=== PATIENT | male | born 1965 | race Caucasian/White ===

== ENCOUNTER 2017-12-05 22:10 | Observation (INO) | payer OTHER ==
[2017-12-05] MEDS ORDERED: NITROGLYCERIN 0.4 MG BTL SL PRN (22:17)
[2017-12-05] MEDS ORDERED: NS 1,000 ML IV ONE (22:17)
[2017-12-05] MEDS ORDERED: ASPIRIN 81 MG CHEWABLE TAB PO ONE (22:17)
--- NOTE | 2017-12-05 22:20 | EDPHY ---
H & P Stated Complaint: Chest pain/palpatations HPI/ROS: HPI CHIEF COMPLAINT: Chest pressure, "my heart feels like it is stopping " HISTORY OF PRESENT ILLNESS: Patient is a 52-year-old male, history of diabetes , and hypertension, and high triglycerides mild obesity, presents emergency room with pressure in his chest. Patient reports that intermittently over the past week he has had some discomfort in his chest he describes it rather high in his chest as a pressure sensation. Sometimes goes to his back. He was driving this evening and felt like his heart was stopping. He had 2 discrete episodes lasting a few minutes where he states he felt like his heart stopped. Distally state he felt somewhat short of breath and then developed this pressure in his chest. Also had some referred numbness and tingling in his left arm. No nausea. Denies diaphoresis. Denies pleuritic pain. He states he had similar episode back in 2014 for which she was seen here at this hospital for. He states he had a nuclear stress test then and he was negative. Past Medical History: Hypertension, diabetes, triglycerides Past Surgical History: No recent surgery. 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 Denies daily use of drugs alcohol tobacco products. Family History: Noncontributory ROS REVIEW OF SYSTEMS: A comprehensive 10 point review of systems is otherwise negative aside from elements mentioned in the history of present illness. Exam Constitutional appears well nontoxic triage nursing summary reviewed, vital signs reviewed, awake/alert. Eyes normal conjunctivae and sclera, EOMI, PERRLA. HENT normal inspection, atraumatic, moist mucus membranes, no epistaxis, neck supple/ no meningismus, no raccoon eyes. Respiratory clear to auscultation bilaterally, normal breath sounds, no respiratory distress, no wheezing. Cardiovascular rate normal, regular rhythm, no murmur, no edema, distal pulses normal. Gastrointestinal soft, non-tender, no rebound, no guarding, normal bowel sounds, no distension, no pulsatile mass. Genitourinary no CVA tenderness. Musculoskeletal no midline vertebral tenderness, full range of motion, no calf swelling, no tenderness of extremities, no meningismus, good pulses, neurovascularly intact. Skin pink, warm, & dry, no rash, skin atraumatic. Neurologic awake, alert and oriented x 3, AAOx3, moves all 4 extremities equally, motor intact, sensory intact, CN II-XII intact, normal cerebellar, normal vision, normal speech. Psychiatric normal mood/affect. Heme/Lymph/Immune no lymphadenopathy. Differential diagnosis includes but is not limited to: ACS, atypical chest pain , pneumothorax, pneumonia, pulmonary embolism, aortic dissection, congestive heart failure, tumor, musculoskeletal pain, esophageal pain, GERD, peptic ulcer disease, pancreatitis Medical Decision Making: Plan for this patient IV establishment blood draw, EKG will check troponin, full chain offbearer, D-dimer, chest x-ray, full-dose aspirin and nitroglycerin and re-evaluate. Re-evaluation: EKG interpretation by me on record in [facility] system. Impression time of EKG 2218, sinus tachycardia rate of 112. T-wave flattening in the inferior leads. T flattening in V5 V6. Slight inversion in V5. No ST elevation. No significant ST depression. 2358: Patient is chest pain-free after nitroglycerin. He has receive full- dose aspirin. EKG pretty much similar to old EKG, negative troponin negative D-dimer. Chest x -rays reviewed is unremarkable. Patient cardiac risk factors include age, obesity, hypertension, diabetes, high triglycerides, given his presentation I do feel that it is reasonable to observe him overnight with serial enzymes. I have asked the hospitalist service to admit him for observation for chest discomfort and rule him out with serial enzymes. The patient is comfortable this plan. This time he is hemodynamically stable without any chest pain. Source: Patient, Family, EMS - Personal History Tetanus Vaccine Date: 2009 - Medical/Surgical History Hx Asthma: No Hx Chronic Respiratory Disease: No Hx Diabetes: Yes Hx Cardiac Disease: Yes Hx Renal Disease: No Hx Cirrhosis: No Hx Alcoholism: No Hx HIV/AIDS: No Hx Splenectomy or Spleen Trauma: No Other PMH: HTN NIDDM. - Social History Smoking Status: Never smoked Constitutional: Initial Vital Signs Temperature (C) 36.8 C 12/05/17 22:13 Heart Rate 115 H 12/05/17 22:13 Respiratory Rate 20 12/05/17 22:13 Blood Pressure 140/92 H 12/05/17 22:13 O2 Sat (%) 95 12/05/17 22:13 O2 Delivery Mode Room Air Allergies/Adverse Reactions: Penicillins Allergy (Intermediate, Verified 12/05/17 22:12) Rash Home Medications: Medication Instructions Recorded Atorvastatin Calcium [Lipitor 10 10 mg PO DAILY 01/05/16 mg (*)] Glimepiride [Amaryl 2 MG (*)] 2 mg PO DAILY@08 01/05/16 Lisinopril/Hctz 10/12.5 mg 1 tab PO DAILY 01/05/16 [Zestoretic/Prinzide 10/12.5MG (*)] [place]-3 Fatty Acids [Fish Oil 1000 1,000 mg PO DAILY 01/05/16 mg (*)] metFORMIN HCL [Glucophage 500 mg 1,000 mg PO BIDMEAL 01/05/16 (*)] Aspirin 81 mg PO DAILY #30 tablet 01/06/16 Medical Decision Making - Diagnostics Imaging Results: Imaging Impressions Chest X-Ray 12/05/17 22:17 Impression: Stable and negative. - Data Points Laboratory Results: Laboratory Results 12/05/17 22:00 12/05/17 22:00 12/05/17 12/05/17 12/05/17 22:00 22:00 22:00 WBC 11.14 10^3/uL H 10^3/uL (3.80-9.50) RBC 5.72 10^6/uL 10^6/uL (4.40-6.38) Hgb 18.3 g/dL H g/dL (13.7-17.5) Hct 51.2 % H % (40.0-51.0) MCV 89.5 fL fL (81.5-99.8) MCH 32.0 pg pg (27.9-34.1) MCHC 35.7 g/dL g/dL (32.4-36.7) RDW 13.5 % % (11.5-15.2) Plt Count 323 10^3/uL 10^3/uL (150-400) MPV 10.8 fL fL (8.7-11.7) Neut % (Auto) 36.1 % L % (39.3-74.2) Lymph % (Auto) 52.9 % H % (15.0-45.0) [place] % (Auto) 8.3 % % (4.5-13.0) Eos % (Auto) 1.7 % % (0.6-7.6) Baso % (Auto) 0.5 % % (0.3-1.7) Nucleat RBC Rel Count 0.0 % % (0.0-0.2) Absolute Neuts (auto) 4.01 10^3/uL 10^3/uL (1.70-6.50) Absolute Lymphs (auto) 5.89 10^3/uL H 10^3/uL (1.00-3.00) Absolute Monos (auto) 0.93 10^3/uL H 10^3/uL (0.30-0.80) Absolute Eos (auto) 0.19 10^3/uL 10^3/uL (0.03-0.40) Absolute Basos (auto) 0.06 10^3/uL 10^3/uL (0.02-0.10) Absolute Nucleated RBC 0.00 10^3/uL 10^3/uL (0-0.01) Immature Gran % 0.5 % % (0.0-1.1) Immature Gran # 0.06 10^3/uL 10^3/uL (0.00-0.10) PT 12.1 SEC SEC (12.0-15.0) INR 0.87 (0.83-1.16) APTT 27.5 SEC SEC (23.0-38.0) D-Dimer < 0.27 ug/mLFEU ug/mLFEU (0.00-0.50) Sodium 141 mEq/L mEq/L (135-145) Potassium 3.9 mEq/L mEq/L (3.5-5.2) Chloride 95 mEq/L L mEq/L (97-110) Carbon Dioxide 28 mEq/l mEq/l (22-31) Anion Gap 18 mEq/L H mEq/L (8-16) BUN 14 mg/dL mg/dL (7-23) Creatinine 1.2 mg/dL mg/dL (0.7-1.3) Estimated GFR > 60 Glucose 179 mg/dL H mg/dL (70-100) Calcium 10.6 mg/dL H mg/dL (8.5-10.4) Magnesium 2.0 mg/dL mg/dL (1.6-2.3) Total Bilirubin 0.7 mg/dL mg/dL (0.1-1.4) Conjugated Bilirubin 0.3 mg/dL mg/dL (0.0-0.5) Unconjugated Bilirubin 0.4 mg/dL mg/dL (0.0-1.1) AST 32 IU/L IU/L (17-59) ALT 70 IU/L IU/L (21-72) Alkaline Phosphatase 72 IU/L IU/L (38-126) Creatine Kinase 66 IU/L IU/L (0-224) CK-MB (CK-2) Fraction 0.90 ng/mL ng/mL (0.00-3.19) Troponin I < 0.012 ng/mL ng/mL (0.000-0.034) NT-Pro-B Natriuret Pep < 11 pg/mL pg/mL (0-125) Total Protein 8.2 g/dL g/dL (6.3-8.2) Albumin 5.1 g/dL H g/dL (3.5-5.0) Lipase 187 IU/L IU/L (23-300) Medications Given: Nitroglycerin (Nitrostat) 0.4 mg SL Q5M PRN PRN Reason: Chest Pain Last Admin: 12/05/17 22:27 Dose: 0.4 mg Discontinued Medications Aspirin (Aspirin) 324 mg PO EDNOW ONE Stop: 12/05/17 22:18 Last Admin: 12/05/17 22:27 Dose: Not Given Sodium Chloride (Ns) 1,000 mls @ 0 mls/hr IV EDNOW ONE; Wide Open PRN Reason: Protocol Stop: 12/05/17 22:18 Last Admin: 12/05/17 22:29 Dose: 1,000 mls Departure - Departure Disposition: [facility] Inpatient Acute Clinical Impression: Chest pain Qualifiers: Chest pain type: unspecified Qualified Code(s): R07.9 - Chest pain, unspecified Condition: Fair Referrals: Patient,NotPresent [Unknown] - As per Instructions
--- NOTE | 2017-12-05 22:23 | CPEKG ---
Heart Rate: 112 RR Interval: 536 P-R Interval: 148 QRSD Interval: 86 QT Interval: 308 QTC Interval: 421 P [place]: 40 QRS [place]: 17 T Wave [place]: 53 EKG Severity - BORDERLINE ECG - EKG Impression: SINUS TACHYCARDIA EKG Impression: BORDERLINE T WAVE ABNORMALITIES Electronically Signed By: Arnoldo Steele 07-Dec-2017 09:13:42
[2017-12-05 22:44] LABS: PLATELET COUNT 323 10^3/uL (150-400)
[2017-12-05 22:50] LABS: INR 0.87 (0.83-1.16); PROTIME(PATIENT) 12.1 SEC (12.0-15.0)
[2017-12-05 22:54] LABS: CREATINE KINASE 66 IU/L (0-224)
[2017-12-06] MEDS ORDERED: NITROGLYCERIN 0.4 MG BTL SL PRN ×3 (01:15→11:54)
[2017-12-06] MEDS ORDERED: ONDANSETRON 4 MG/2 ML VIAL IVP PRN ×2 (01:17→11:54)
[2017-12-06] MEDS ORDERED: LORazepam 2 MG/ML INJ IVP PRN (01:17)
[2017-12-06] MEDS ORDERED: HYDROCODONE/APAP 5/325 TAB PO PRN ×2 (01:17→11:54)
[2017-12-06] MEDS ORDERED: ACETAMINOPHEN 325 MG TAB PO PRN ×2 (01:17→10:30)
--- NOTE | 2017-12-06 01:25 | CPEKG ---
Heart Rate: 113 RR Interval: 531 P-R Interval: 160 QRSD Interval: 88 QT Interval: 304 QTC Interval: 417 P Harper: 47 QRS Harper: 31 T Wave Harper: 13 EKG Severity - BORDERLINE ECG - EKG Impression: SINUS TACHYCARDIA EKG Impression: BORDERLINE T ABNORMALITIES, ANT-LAT LEADS Preliminary Awaiting MD Review
[2017-12-06] MEDS ORDERED: NS 1,000 ML IV SCH ×2 (01:30→10:30)
[2017-12-06 01:50] LABS: CREATINE KINASE 61 IU/L (0-224)
[2017-12-06] MEDS ORDERED: D50W 25 GM/50 ML VIAL IVP PRN (02:28)
[2017-12-06] MEDS ORDERED: ATORVASTATIN CALCIUM 10 MG TAB PO SCH (02:30)
--- NOTE | 2017-12-06 08:10 | PDGENHP ---
History and Physical - Chief Complaint chest pain - History of Present Illness Source - patient provides history and is very reliable. at bedside. EMR reviewed and case discussed with ED provider. HPI - Pleasant 52 yo M with pmhx significant for DM II, HTN, HLD, obesity (BMI 35), on testosterone replacement who presented to the ED with complaints of development of upper substernal chest pressure starting in the latter part of the evening. Patient was sitting in his car driving when he developed suddent onset of SOB and chest pressure as above. Pain was mild/constant but progressively worsened. Patient also feels as though his "heart stopped" for a few seconds. Patient without any associated dizziness/diaphoresis. no nausea/ vomiting or radiation of chest pressure. Patient does note development of a small area of numbness/tingling at the distal aspect of his left arm. Patient with recent URI symptoms now resolved 10 days ago. Patient also was admitted 2015 with similar symptoms. He underwent NM stress testing with negative findings and a Holter monitor results of which patient assumes was normal as he never heard back. Patient since that time has remained active and reports swimming daily for 1 hour. He has not had any anginal symptoms since that time. denies PND, orthopnea or LE edema. PAtient with a previous history of snoring which has since resolved over the last year However patient denies having ever been screened or completed a sleep study. denies any witnessed apneic episodes or snoring. FHx is significant for CAD with paternal grandfather with ME age 48 and father ME age 52. History Information - Allergies/Home Medication List Allergies/Adverse Reactions: Penicillins Allergy (Intermediate, Verified 12/05/17 22:12) Rash Home Medications: Atorvastatin Calcium [Lipitor 10 mg (*)] 10 mg PO DAILY 01/05/16 [Last Taken ] Glimepiride [Amaryl 2 MG (*)] 2 mg PO DAILY@08 01/05/16 [Last Taken 01/03/16] Lisinopril/Hctz 10/12.5 mg [Zestoretic/Prinzide 10/12.5MG (*)] 1 tab PO DAILY [Last Taken 01/04/16 21:00] [place]-3 Fatty Acids [Fish Oil 1000 mg (*)] 1,000 mg PO DAILY 02/15/16 [Last Taken Unknown] metFORMIN HCL [Glucophage 500 mg (*)] 1,000 mg PO BIDMEAL 01/05/16 [Last Taken 01/04/16 09:00] I have personally reviewed and updated: family history, medical history, social history, surgical history - Past Medical History Additional medical history: DM II, HTN, HLD, anxiety, obesity (BMI 35). Low Testosterone on injection. PNA 2005 not reuquiring admission. - Surgical History Additional surgical history: T/A, wisdom tooth extraction - Family History Additional family history: pgf - CAD, ME age 48. father - CAD/ME age 52. 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 COR - FULL. MDPOA. Review of Systems Review of Systems: ROS: 10pt was reviewed & negative except for what was stated in HPI & below Constitutional: Reports: no symptoms EENMT: Reports: other (recent URI sx). Denies: eye pain, nose congestion, sore throat Cardiac: Reports: chest pain, palpitations ("stopped beats"), other (see HPI.). Denies: edema Respiratory: Reports: shortness of breath (see hpi). Denies: cough Gastrointestinal: Reports: no symptoms Genitourinary: Reports: no symptoms Muscolosketal: Reports: no symptoms Skin: Reports: no symptoms Neurological: Reports: no symptoms Physical Exam Physical Exam: Selected Entries 12/05/17 12/05/17 12/06/17 22:13 23:46 01:53 Blood Pressure Automatic Automatic Automatic Method Heart Rate 115 H 113 H 110 H Respiratory 20 20 18 Rate O2 Sat (%) 95 95 93 Temperature (C) 36.8 C Blood Pressure 140/92 H 120/82 H 122/80 H Mean Arterial 108 H 94 94 Pressure (MAP) O2 Delivery Room Air Room Air Room Air Mode Temperature Oral Source Constitutional: no apparent distress, obese Eyes: PERRL, anicteric sclera, EOMI, other (glasses), No pale conjunctiva, No scleral injection Ears, Nose, Mouth, Throat: moist mucous membranes, other (no nasal discharge), No poor dentition Cardiovascular: regular rate and rhythym, no murmur, rub, or gallop, pulses symmetric bilaterally, No systolic murmur, No edema Peripheral Pulses: 1+: dorsalis-pedis (R), dorsalis-pedis (L) Respiratory: no respiratory distress, no rales or rhonchi, clear to auscultation Gastrointestinal: normoactive bowel sounds, soft, non-tender abdomen, no palpable masses, No tenderness, No guarding, No distension Genitourinary: no bladder tenderness, No gonzalez in urethra Skin: warm, normal color, no rashes or abrasions, No mottled Musculoskeletal: full muscle strength, other (sits up independently), No generalized weakness Neurologic: AAOx3, sensation intact bilaterally, other (nonfocal exam), No facial droop Psychiatric: interacting appropriately, not encephalopathic, thought process linear, anxious, flat affect Lab Data & Imaging Review 12/05/17 22:00 12/05/17 22:00 WBC 11.14 10^3/uL (3.80-9.50) H 12/05/17 22:00 RBC 5.72 10^6/uL (4.40-6.38) 12/05/17 22:00 Hgb 18.3 g/dL (13.7-17.5) H 12/05/17 22:00 Hct 51.2 % (40.0-51.0) H 12/05/17 22:00 MCV 89.5 fL (81.5-99.8) 12/05/17 22:00 MCH 32.0 pg (27.9-34.1) 12/05/17 22:00 MCHC 35.7 g/dL (32.4-36.7) 12/05/17 22:00 RDW 13.5 % (11.5-15.2) 12/05/17 22:00 Plt Count 323 10^3/uL (150-400) 12/05/17 22:00 MPV 10.8 fL (8.7-11.7) 12/05/17 22:00 Neut % (Auto) 36.1 % (39.3-74.2) L 12/05/17 22:00 Lymph % (Auto) 52.9 % (15.0-45.0) H 12/05/17 22:00 [place] % (Auto) 8.3 % (4.5-13.0) 12/05/17 22:00 Eos % (Auto) 1.7 % (0.6-7.6) 12/05/17 22:00 Baso % (Auto) 0.5 % (0.3-1.7) 12/05/17 22:00 Nucleat RBC Rel Count 0.0 % (0.0-0.2) 12/05/17 22:00 Absolute Neuts (auto) 4.01 10^3/uL (1.70-6.50) 12/05/17 22:00 Absolute Lymphs (auto) 5.89 10^3/uL (1.00-3.00) H 12/05/17 22:00 Absolute Monos (auto) 0.93 10^3/uL (0.30-0.80) H 12/05/17 22:00 Absolute Eos (auto) 0.19 10^3/uL (0.03-0.40) 12/05/17 22:00 Absolute Basos (auto) 0.06 10^3/uL (0.02-0.10) 12/05/17 22:00 Absolute Nucleated RBC 0.00 10^3/uL (0-0.01) 12/05/17 22:00 Immature Gran % 0.5 % (0.0-1.1) 12/05/17 22:00 Immature Gran # 0.06 10^3/uL (0.00-0.10) 12/05/17 22:00 PT 12.1 SEC (12.0-15.0) 12/05/17 22:00 INR 0.87 (0.83-1.16) 12/05/17 22:00 APTT 27.5 SEC (23.0-38.0) 12/05/17 22:00 D-Dimer < 0.27 ug/mLFEU (0.00-0.50) 12/05/17 22:00 Sodium 141 mEq/L (135-145) 12/05/17 22:00 Potassium 3.9 mEq/L (3.5-5.2) 12/05/17 22:00 Chloride 95 mEq/L (97-110) L 12/05/17 22:00 Carbon Dioxide 28 mEq/l (22-31) 12/05/17 22:00 Anion Gap 18 mEq/L (8-16) H 12/05/17 22:00 BUN 14 mg/dL (7-23) 12/05/17 22:00 Creatinine 1.2 mg/dL (0.7-1.3) 12/05/17 22:00 Estimated GFR > 60 12/05/17 22:00 Glucose 179 mg/dL (70-100) H 12/05/17 22:00 Calcium 10.6 mg/dL (8.5-10.4) H 12/05/17 22:00 Magnesium 2.0 mg/dL (1.6-2.3) 12/05/17 22:00 Total Bilirubin 0.7 mg/dL (0.1-1.4) 12/05/17 22:00 Conjugated Bilirubin 0.3 mg/dL (0.0-0.5) 12/05/17 22:00 Unconjugated Bilirubin 0.4 mg/dL (0.0-1.1) 12/05/17 22:00 AST 32 IU/L (17-59) 12/05/17 22:00 ALT 70 IU/L (21-72) 12/05/17 22:00 Alkaline Phosphatase 72 IU/L (38-126) 12/05/17 22:00 Creatine Kinase 61 IU/L (0-224) 12/06/17 01:34 CK-MB (CK-2) Fraction 0.90 ng/mL (0.00-3.19) 12/05/17 22:00 Troponin I < 0.012 ng/mL (0.000-0.034) 12/06/17 01:34 NT-Pro-B Natriuret Pep < 11 pg/mL (0-125) 12/05/17 22:00 Total Protein 8.2 g/dL (6.3-8.2) 12/05/17 22:00 Albumin 5.1 g/dL (3.5-5.0) H 12/05/17 22:00 Lipase 187 IU/L (23-300) 12/05/17 22:00 Imaging Review: Portable Chest, 22:33 History: Chest pressure Comparison: 01/04/2016 Findings: Lungs clear. Heart normal. No pneumothorax or pleural effusion. EKG leads overlie the chest. Impression: Stable and negative. Visualized and Interpreted Chest x-ray results: Yes Chest X-Ray results: no infiltrate (sinus tach. q wave III, t wave flattening/ inversion v5/6 repeat ekg and ekg from [address] elevations. ) Assessment & Plan Assessment: 52 yo M with pmhx significant for DM II, HTN, HLD, obesity, on testosterone tx with strong cardiac FHx presents with c/o sudden onset substernal chest pressure /discomfort #Chest pain (Acute) - patient developed mild chest pressure and I evaluated patient in ED. repeat EKG was similar to previous ekgs without any acute changes but persistent q wave III, t wave inversion/flattening v5/6. serial troponins were negative. patient reporting nitroglycerin improving symptoms. pt with increasing anxiety during my second visit. ativan will be available prn. ddx including ACS vs stress cardiomyopathy vs gerd vs anxiety vs less likely PE. ddimer was negative. anticipate stress testing with serial enzymes. pt reports likely able to ambulate on treadmill advised possibility of NM stress and pt amenable if change needed. #dyspnea - resolved. possibly component of dyspnea rlated to cardiac etiology vs also likely possibility for anxiety. ddimer negative. cxr without evidence of consolidation. #DM II - noninsulin, controlled. resume metformin and glimepiride at discharge if no decision for contrast exposure. low dose ISS and NPO after midnight then diabetic diet. #benign essential HTN - BPs acceptable at this time. resume pt lisinopril/HCTZ when diet advanced and med list reconciled. #HLD - continue statin. will need to clarify dosing. #obesity (35) - pt reports increased activity and lifestyle changes since last hospitalization. #low T - pt receives weekly outpatient injections. #anxiety - ativan prn. #polycythemia - likely 2/2 hemoconcentration. patient received IVF in ED and sips. repeat cbc in AM. FEN - IVF. electrolyte replacement prn. npo for study then ADA diet. PPX - SCDs. lovenox. COR - FULL. Kaykay is MDPOA. Dispo - Admit to observation on PCU for close cardiac monitoring pending cardiac evaluation results.
[2017-12-06 08:13] LABS: PLATELET COUNT 254 10^3/uL (150-400)
[2017-12-06] MEDS ORDERED: ENOXAPARIN 40 MG/0.4 ML SYR SC SCH (09:00)
--- NOTE | 2017-12-06 09:01 | CPEKG ---
Heart Rate: 85 RR Interval: 706 P-R Interval: 156 QRSD Interval: 88 QT Interval: 328 QTC Interval: 390 P Rowe: 50 QRS Rowe: 25 T Wave Rowe: 13 EKG Severity - BORDERLINE ECG - EKG Impression: SINUS RHYTHM EKG Impression: BORDERLINE T WAVE ABNORMALITIES Preliminary Awaiting MD Review
[2017-12-06] MEDS: INSULIN LISPRO 100 UNIT/ML SC SCH ×2 (09:19→12:20)
--- NOTE | 2017-12-06 09:26 | ASMTCASEMG ---
Living Arrangements What is your living Answers: With Spouse arrangement? Who do you live with? Type Of Residence What kind of residence do Answers: House you live in? Discharge Plan Comments Coordination Status Comments Notes: Pt is a 52 y/o man admitted for chest pressure. Pt will most likely d/c independent when medically stable. No therapies ordered at this time. CM available for changes. Plan: Independent Date Signed: 12/06/2017 09:25 AM Electronically Signed By:RUBEN Roque
[2017-12-06] MEDS ORDERED: TEMAZEPAM 15 MG CAP PO PRN (10:30)
[2017-12-06] MEDS ORDERED: ASPIRIN EC 325 MG TAB PO ONE (10:30)
[2017-12-06] MEDS ORDERED: FAMOTIDINE 20 MG TAB PO ONE (10:30)
[2017-12-06] MEDS ORDERED: diphenhydrAMINE 25 MG CAP PO ONE (10:30)
[2017-12-06] MEDS ORDERED: DIAZEPAM 5 MG TAB PO ONE (10:30)
[2017-12-06] MEDS ORDERED: LIDOCAINE 1% 300 MG/30 ML SDV ONE (10:48)
[2017-12-06] MEDS ORDERED: fentaNYL 100 MCG/2 ML INJ ONE ×2 (10:48→11:28)
[2017-12-06] MEDS ORDERED: MIDAZOLAM 2 MG/2 ML VIAL ONE ×2 (10:49→11:29)
[2017-12-06] MEDS ORDERED: IOPAMIDOL (ISOVUE-370) 150 ML BTL IV ONE (10:49)
--- NOTE | 2017-12-06 11:24 | PDPROPOC ---
Sedation Plan of Care ASA Classification: ASA 1 Mallampati Score: Class 1 Mallampati Reference Image: Patient passed 3-3-2 rule?: Yes
--- NOTE | 2017-12-06 11:25 | PDHPUP ---
History & Physical Update H&P update statement: This history and physical update is based on an assessment of the patient which was completed after admission or registration (within 24 hours), but prior to the surgery/procedure. pt is having rest pain consistent w angina / many riusk factors offered nuc ett wants cath which i rec. rev w his and he . cpr
[2017-12-06] MEDS ORDERED: OXYCODONE/APAP 5/325 TAB PO PRN (11:54)
[2017-12-06] MEDS ORDERED: ATROPINE SULFATE 1 MG/10 ML SYR IVP PRN (11:54)
--- NOTE | 2017-12-06 12:21 | CPIP ---
[f rep st] INVASIVE CARDIAC PROCEDURE PROCEDURES: Left heart catheterization, left ventriculogram, right and left coronary arteriogram. FINDINGS: ANGIOGRAPHY: Left main coronary artery normal. Left anterior descending artery has intimal disease present. The 1st diagonal branch of the LAD has a 15% ostial stenosis. The circumflex coronary artery has diffuse intimal disease present. The 1st obtuse marginal branch is a large vessel with 10% lesions in the proximal segment. The right coronary artery is dominant. There is multiple 20% stenosis in the PDA in the right coronary artery. There is no high-grade obstr uction noted. LEFT HEART CATHETERIZATION: Left ventricular end-diastolic pressure 10 mmHg. No aortic stenosis. LEFT VENTRICULOGRAM: Is a generous size left ventricle with an ejection fraction of 55%. There were no regional wall henrietta on abnormalities and no severe mitral regurgitation. COMPLICATIONS: None. CONDITION AT THE END OF STUDY: Excellent. DISCUSSION: This patient had the test done because he was having breast discomfort and has had multi ple episodes of chest pressure, and that could be angina. He was having 1 to 2/10 chest t ightness before he was going to have a stress test, and his EKG showed diffuse nonspecific ST-T schofield es. He then elected rather than go and do a stress test to proceed to coronary angiography which I r ecommended. I talked ahead of time to his and to him. He has major risk factors for coronary d isease with multiple people in his family having had myocardial infarctions or before the age o f 50. He is overweight. He has dyslipidemia. He has hypertension and he has diabetes. Given all h is risk factors and the classic nature of his pain, it was felt that angiography was a safer approach than stress test with ongoing chest pain. He tolerated the procedure well. There is no high-grade obstruction present. We are going to work very, very hard on secondary prevention. All his question s have been answered. There is nothing in his history or findings that suggests he has pulmonary embolic disease or disease of the great vessels. His pulses were full and equal. If he deteriorates in any way, he will let us now. /[id number]/MODL
[2017-12-06 13:41] VITALS: RESP 18; TEMP 97.3; O2SAT 90
[2017-12-06 16:15] VITALS: PULSE 90
[2017-12-06 16:16] VITALS: BP 122/80
--- NOTE | 2017-12-06 23:37 | GDS ---
[f rep st] DISCHARGE SUMMARY DISCHARGE DIAGNOSES: 1. Chest pain. 2. Type 2 diabetes. 3. Hypertension. 4. Hyperlipidemia. HISTORY OF PRESENT ILLNESS: This is a 52-year-old male, who presents with complaints of chest pain. For details of the patient's initial presentation, please see the history and physical dated 017. CONSULTATIVE SERVICES: Cardiology. PROCEDURES: On 12/06/2017, patient was taken for cardiac stress test pain. From stress testing was taken immediately to cardiac catheterization. Cardiac cath showed nonobstructive disease. HOSPITAL COURSE BY ISSUE: 1. Chest pain. Patient was ruled out overnight and watched on telemetry where he remained stable. Was taken initially for cardiac stress testing, and the initial portion of his test was positive. He was taken directly from stress to the cardiac shop laborer for angiography. Angiography confirmed nonob structive disease of the coronary arteries. He was stabilized post catheterization and is being disc harged on his home dosing of aspirin, statin, and HOLDEN inhibitor. Patient will follow next week for p ost cardiac cath followup with Vaishnavi Carver. 2. Type 2 diabetes. Patient was continued on his oral medications for glycemic control. 3. Hypertension. Continued on his home medications with good blood pressure control. MEDICATIONS AT THE TIME OF DISPOSITION: Please reference the med rec printed on 12/06/2017. FOLLOWUP APPOINTMENTS: Vaishnavi Carver in 1 week's time for post cardiac cath followup. I spent greater than 30 minutes in the planning and coordination of this discharge. /[id number]/MODL
--- NOTE | 2017-12-07 15:57 | ASDISCHSUM ---
Discharge Information Plan Status:Home with No Needs Medically Cleared to Leave:12/05/2017 Discharge Date:12/06/2017 05:20 PM CM D/C Disposition: ADT D/C Disposition:Home, Routine, Self-Care Projected Discharge Date:12/06/2017 12:00 AM Transportation at D/C: Discharge Delay Reason: Follow-Up Date:12/06/2017 12:00 AM Discharge Slot: Final Diagnosis: Placement Information Patient Contact Information Contact Name:JOSE Relationship: Address:[address] Work Phone: City:[place] Alternate Phone: [facility]/Zip Code:[place] [address] Email: Financial Information Financial Class:HMO and PPO Plans [facility] Desc:[facility] Primary Plan Number:[id number] Secondary Plan Desc: Secondary Plan Number: Assessment Information [facility] Initial CM Assessment Living Arrangements What is your living Answers: With Spouse arrangement? Who do you live with? Type Of Residence What kind of residence do Answers: House you live in? Discharge Plan Comments Coordination Status Comments Notes: Pt is a 52 y/o man admitted for chest pressure. Pt will most likely d/c independent when medically stable. No therapies ordered at this time. CM available for changes. Plan: Independent Date Signed: 12/06/2017 09:25 AM Electronically Signed By:RUBEN Roque Intervention Information
== END 2017-12-06 17:20 | disposition home or self-care (01) ==
LOC: EDUNIT# → F2W 12-06 02:40
PROVIDERS: ADMIT Family Medicine; ATTEND Hospitalist
PROC: B2151ZZ Fluoroscopy of Left Heart using Low Osmolar Contrast (ICD-10-PCS; principal; 2017-12-05)
PROC: 4A023N7 Measurement of Cardiac Sampling and Pressure, Left Heart, Percutaneous Approach (ICD-10-PCS; principal; 2017-12-05)
PROC: B2111ZZ Fluoroscopy of Multiple Coronary Arteries using Low Osmolar Contrast (ICD-10-PCS; principal; 2017-12-05)
DX: R07.9 Chest pain, unspecified (principal); R06.00 Dyspnea, unspecified; E11.9 Type 2 diabetes mellitus without complications; I10 Essential (primary) hypertension; E78.5 Hyperlipidemia, unspecified; F41.9 Anxiety disorder, unspecified; E66.9 Obesity, unspecified; Z68.35 Body mass index [BMI] 35.0-35.9, adult; D75.1 Secondary polycythemia; Z82.49 Family history of ischemic heart disease and other diseases of the circulatory system; Z88.0 Allergy status to penicillin
CPT/HCPCS: 71045; 93005; 93458; G0378; J1644; J1650; J2060; J2250; J3010; Q9967